=== PATIENT | male | born 1995 | race Caucasian/White ===

== ENCOUNTER 2020-09-12 01:03 | Emergency (ER) | payer BC ==
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
[2020-09-12] MEDS ORDERED: Ibuprofen 600 MG Tab PO ONE (03:13)
== END 2020-09-12 03:24 | disposition home or self-care (01) ==
LOC: JP.ED 01:03
DX: S02.2XXA Fracture of nasal bones, initial encounter for closed fracture (principal); Z88.1 Allergy status to other antibiotic agents; Z88.2 Allergy status to sulfonamides; W50.0XXA Accidental hit or strike by another person, initial encounter
CPT/HCPCS: 70486; 99283-25